=== PATIENT | male | born 1965 | race Asian ===

== ENCOUNTER 2016-10-10 09:10 | Outpatient (CLI) | payer OTHER ==
[~2016-10-10 09:10] MED LIST: MELOXICAM7.5 MG OR; METF500T PO
== END 2016-10-10 20:08 | disposition home or self-care (01) ==
LOC: US 09:10
DX: N50.811 Right testicular pain (principal)

== ENCOUNTER 2016-11-15 12:22 | Outpatient (CLI) | payer OTHER | END 2016-11-15 19:31 | disposition home or self-care (01) | LOC: RAD 12:22 | DX: M79.672 Pain in left foot (principal) ==

== ENCOUNTER 2016-12-30 10:14 | Emergency (ER) | payer OTHER ==
[~2016-12-30] VITALS: Ht 177.8 cm; Wt 92.5 kg
[2016-12-30 12:35] VITALS: BP 145/79; TEMP 97.9
== END 2016-12-30 12:35 | disposition home or self-care (01) ==
LOC: ED 10:14
PROC: 2W3HX1Z Immobilization of Left Thumb using Splint (ICD-10-PCS; principal; 2016-12-30)
DX: S63.602A Unspecified sprain of left thumb, initial encounter (principal); V59.40XA Driver of pick-up truck or van injured in collision with unspecified motor vehicles in traffic accident, initial encounter; Y92.410 Unspecified street and highway as the place of occurrence of the external cause
CPT/HCPCS: 99282

== ENCOUNTER 2017-01-09 07:52 | Outpatient (CLI) | payer OTHER | END 2017-01-09 19:04 | disposition home or self-care (01) | LOC: MRI 07:52 | DX: M54.5 Low back pain (principal) ==

== ENCOUNTER 2017-06-17 23:34 | Emergency (ER) | payer OTHER ==
[~2017-06-17] VITALS: Ht 177.8 cm; Wt 89.8 kg
[2017-06-18 01:01] LABS: PLATELET COUNT 277 K/uL (142-355)
[2017-06-18 01:28] LABS: POTASSIUM 3.7 mmol/L (3.6-5.2); SODIUM 138 mmol/L (136-145)
[2017-06-18 01:58] VITALS: BP 142/78; TEMP 98.7
== END 2017-06-18 02:03 | disposition home or self-care (01) ==
LOC: ED 23:34
DX: S51.852A Open bite of left forearm, initial encounter (principal); Y04.1XXA Assault by human bite, initial encounter; Y92.89 Other specified places as the place of occurrence of the external cause
CPT/HCPCS: 80053; 81000; 85027; 87490; 87590; 90471; 90715; 99283

== ENCOUNTER 2017-08-04 00:03 | Emergency (ER) | payer OTHER ==
[~2017-08-04] VITALS: Ht 177.8 cm; Wt 92.5 kg
[2017-08-04 02:49] LABS: PLATELET COUNT 265 K/uL (142-355)
[2017-08-04 02:54] LABS: POTASSIUM 3.9 mmol/L (3.6-5.2)
[2017-08-04 04:03] VITALS: BP 151/104; TEMP 98.2
== END 2017-08-04 04:06 | disposition home or self-care (01) ==
LOC: ED 00:03
DX: E11.42 Type 2 diabetes mellitus with diabetic polyneuropathy (principal)
CPT/HCPCS: 80053; 83036; 85027; 85651; 99283

== ENCOUNTER 2017-08-08 10:12 | Outpatient (CLI) | payer OTHER | END 2017-08-08 11:15 | disposition home or self-care (01) | LOC: RAD 10:12 | DX: M25.512 Pain in left shoulder (principal) ==

== ENCOUNTER 2017-08-09 10:00 | Outpatient (CLI) | payer OTHER | END 2017-08-09 21:10 | disposition home or self-care (01) | LOC: RAD 10:00 | DX: M54.2 Cervicalgia (principal) ==